=== PATIENT | male | born 1990 | race American Indian/Alaskan Native ===

== ENCOUNTER 2016-11-21 10:28 | Emergency (ER) | payer OTHER ==
[2016-11-21 11:24] VITALS: BP 137/92
[2016-11-21] MEDS ORDERED: NORCO 10/325 PO ONE (11:47)
[2016-11-21] MEDS ORDERED: BOOSTRIX IM ONE (11:47)
[2016-11-21] MEDS ORDERED: THERMAZENE 50 GRAM TP ONE (12:00)
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
== END 2016-11-21 13:11 | disposition home or self-care (01) ==
LOC: ED 10:28
DX: T25.222A Burn of second degree of left foot, initial encounter (principal); X16.XXXA Contact with hot heating appliances, radiators and pipes, initial encounter; Y93.89 Activity, other specified; Y99.0 Civilian activity done for income or pay; Y92.511 Restaurant or cafe as the place of occurrence of the external cause
CPT/HCPCS: 90471; 90715; 99282